=== PATIENT | male | born 1970 | race Caucasian/White ===

== ENCOUNTER 2018-04-20 20:52 | Emergency (ER) | payer OTHER ==
[~2018-04-20] VITALS: Ht 175.3 cm; Wt 110.5 kg
[~2018-04-20 20:52] MED LIST: BACTRIM DS 8001 TAB PO; DOXYCYCLINE 10100 MG PO; SERTRALINE
[2018-04-20 20:57] VITALS: BP 138/82
[2018-04-20] MEDS ORDERED: PREDNISONE20 MG PO (22:27)
[2018-04-20] MEDS ORDERED: FLEXERIL 1010 MG/TAB PO (22:28)
[2018-04-20 22:36] VITALS: PULSE 89; TEMP 98.3
== END 2018-04-20 22:38 | disposition home or self-care (01) ==
LOC: COL.ER 20:52
DX: M25.511 Pain in right shoulder (principal); F17.210 Nicotine dependence, cigarettes, uncomplicated; X58.XXXA Exposure to other specified factors, initial encounter; Y92.009 Unspecified place in unspecified non-institutional (private) residence as the place of occurrence of the external cause

== ENCOUNTER 2018-04-27 21:47 | Emergency (ER) | payer OTHER ==
[~2018-04-27] VITALS: Ht 175.3 cm; Wt 112.7 kg
[~2018-04-27 21:47] MED LIST changes: +FLEXERIL 1010 MG/TAB PO; +PREDNISONE20 MG PO
[2018-04-27 22:00] VITALS: BP 136/82; TEMP 98.4
[2018-04-27] MEDS ORDERED: FLEXERIL 1010 MG/TAB PO (23:55)
[2018-04-28 00:28] VITALS: PULSE 89
[2018-04-29] VITALS (327 sets, daily range): O2SAT 92–100
[2018-04-29] MEDS ORDERED: FLEXERIL 1010 MG/TAB PO (16:58)
[2018-04-30] VITALS (292 sets, daily range): O2SAT 61–100
[2018-04-30] MEDS ORDERED: PROTONIX 40MG T40 MG PO (14:46)
[2018-04-30] MEDS ORDERED: FLAGYL500 MG PO (14:47)
[2018-04-30] MEDS ORDERED: AMOXICILLIN 50500 MG PO (14:47)
[2018-04-30] MEDS ORDERED: FERROUS GL325 MG/TAB PO (14:57)
== END 2018-04-28 00:30 | disposition home or self-care (01) ==
LOC: COL.ER 21:47
DX: M62.838 Other muscle spasm (principal); F17.210 Nicotine dependence, cigarettes, uncomplicated
CPT/HCPCS: J1885

== ENCOUNTER → 2018-05-09 | Outpatient (CLI) | payer MEDICARE ==
[~2018-05-09] MED LIST changes: +AMOXICILLIN 50500 MG PO; +FERROUS GL325 MG/TAB PO; +FLAGYL500 MG PO; +PROTONIX 40MG T40 MG PO
[2018-05-09 12:18] LABS: MEAN CELL VOLUME 98 fl (80.0-100.0); MEAN CORPUSCULAR HGB CONC 32 g/dl (33.0-37.0); MEAN PLATELET VOLUME 9.2 fl (7.4-10.4); PLATELET COUNT 320 K/mm3 (130-400); RED BLOOD COUNT 3.16 M/mm3 (4.20-5.60); REDCELL DISTRIBUTION WIDTH-CV 15.9 % (11.5-14.5)
[2018-05-09 12:21] LABS: HEMATOCRIT 30.9 % (42.0-52.0); HEMOGLOBIN 9.9 g/dl (13.5-18.0); MEAN CORPUSCULAR HEMOGLOBIN 31 pg (27.0-31.0)
== END ==
LOC: COL.LAB 11:44
PROVIDERS: Family Medicine
DX: D64.9 Anemia, unspecified (principal)

== ENCOUNTER 2018-11-17 10:49 | Day surgery (SDC) | payer MEDICARE, OTHER ==
[~2018-11-17] VITALS: Ht 175.3 cm; Wt 115.0 kg
[2018-11-17 11:19] VITALS: BP 112/84; PULSE 100; TEMP 98.9
[2018-11-17] MEDS ORDERED: TYLENOL 8 HR PO (11:22)
[2018-11-17 11:45] VITALS: BP 111/73; PULSE 97; TEMP 97.8
[2018-11-17 12:00] VITALS: BP 103/70; PULSE 95
[2018-11-17 12:15] VITALS: BP 107/74; PULSE 95
== END 2018-11-17 12:31 ==
LOC: SDCO 10:49
DX: K26.3 Acute duodenal ulcer without hemorrhage or perforation (principal); B96.81 Helicobacter pylori [H. pylori] as the cause of diseases classified elsewhere; F17.210 Nicotine dependence, cigarettes, uncomplicated
CPT/HCPCS: J2250; J2405; J3010; J7030

== ENCOUNTER 2019-04-18 17:39 | Emergency (ER) | payer MEDICARE, OTHER ==
[~2019-04-18] VITALS: Ht 175.3 cm; Wt 109.1 kg
[~2019-04-18 17:39] MED LIST changes: +TYLENOL 8 HR PO
[2019-04-18 17:49] VITALS: BP 129/88; TEMP 97.9
[2019-04-18 19:35] VITALS: PULSE 75
== END 2019-04-18 19:35 | disposition home or self-care (01) ==
LOC: COL.ER 17:39
DX: S00.03XA Contusion of scalp, initial encounter (principal); S16.1XXA Strain of muscle, fascia and tendon at neck level, initial encounter; E11.9 Type 2 diabetes mellitus without complications; F17.210 Nicotine dependence, cigarettes, uncomplicated; Y92.009 Unspecified place in unspecified non-institutional (private) residence as the place of occurrence of the external cause; W01.198A Fall on same level from slipping, tripping and stumbling with subsequent striking against other object, initial encounter
CPT/HCPCS: J1885

== ENCOUNTER 2020-11-04 08:05 | Day surgery (SDC) | payer OTHER ==
[~2020-11-04] VITALS: Ht 175.3 cm; Wt 108.0 kg
[2020-11-04 08:46] VITALS: BP 121/79; PULSE 92; TEMP 98.3
[2020-11-04] MEDS ORDERED: GLUCOPHAGE1000 MG PO (08:56)
--- NOTE | 2020-11-04 08:58 | NUR ---
TO CINTHYA AT 0817- CALL LIGHT IN REACH
[2020-11-04] MEDS ORDERED: MOTRIN 600600 MG/TAB PO (10:36)
[2020-11-04] MEDS ORDERED: NORCO 325 MG-51 TAB PO (10:37)
[2020-11-04 12:40] VITALS: BP 111/68; PULSE 90; TEMP 97.2
--- NOTE | 2020-11-04 12:40 | NUR ---
TO RM 5 PER CART FROM PACU. ALERT ORIENTED X3 AND TALKING TO STAFF. COLOR PALE AND SKIN DIAPORETIC. C/O FEELING DIZZY, BUT DENIES NAUSEA. DENIES PAIN OR DISCOMFORT. ATE A FEW ICE CHIPS. LOWERED HEAD OF BED TO SEE IF IT WOULD HEL DIZZYNESS.
[2020-11-04 12:55] VITALS: BP 118/68; PULSE 86
--- NOTE | 2020-11-04 12:55 | NUR ---
C/O FEELING "HOT" REMOVED BLANKETS AND SDC'S. PATIENT STATED HE USUALLY SLEEPS WITH A FAN ON AT HOME.
[2020-11-04 13:10] VITALS: BP 120/73; PULSE 85
--- NOTE | 2020-11-04 13:10 | NUR ---
MORE AWAKE AND RECEIVED COFFEE WITH CREAM AND SUGAR. RECEIVED MYRA CRACKERS SITTING UP
--- NOTE | 2020-11-04 13:20 | NUR ---
SLIGHTLY PALE AND DIAPHORETIC BLOOD SUGAR 182 RECEIVED MUFFIN.
[2020-11-04 13:25] VITALS: BP 112/65; PULSE 93
[2020-11-04 13:40] VITALS: BP 112/65; PULSE 93
--- NOTE | 2020-11-04 13:40 | NUR ---
AMBULATED TO BATHROOM AND VOIDED. CALLED FOR RIDE.
--- NOTE | 2020-11-04 13:55 | NUR ---
RECEIVED DISCHARGE INSTRUCTIONS AND VERBALIZED UNDERSTANDING DISCONTINUED IV AND INT- CATHETER INTACT
--- NOTE | 2020-11-04 14:10 | NUR ---
DISCHARGED PER WC BY NURSING STAFF TO PRIVATE CAR IN CARE OF SON.
== END 2020-11-04 14:20 | disposition home or self-care (01) ==
LOC: SDCO 08:05
DX: K42.9 Umbilical hernia without obstruction or gangrene (principal); E11.9 Type 2 diabetes mellitus without complications; F32.9 Major depressive disorder, single episode, unspecified; F17.290 Nicotine dependence, other tobacco product, uncomplicated; F41.9 Anxiety disorder, unspecified; Z20.828 Contact with and (suspected) exposure to other viral communicable diseases; Z88.8 Allergy status to other drugs, medicaments and biological substances; Z79.84 Long term (current) use of oral hypoglycemic drugs; Z79.899 Other long term (current) drug therapy
CPT/HCPCS: C1781; J0690; J1100; J1885; J2405; J2704; J3010; J7030

== ENCOUNTER 2022-04-23 07:52 | Day surgery (SDC) | payer OTHER ==
[~2022-04-23] VITALS: Ht 175.3 cm; Wt 97.1 kg
[~2022-04-23 07:52] MED LIST changes: +GLUCOPHAGE1000 MG PO; +MOTRIN 600600 MG/TAB PO; +NORCO 325 MG-51 TAB PO
[2022-04-23 09:01] VITALS: BP 115/76; PULSE 76; TEMP 98.7
[2022-04-23 10:00] VITALS: BP 100/68; PULSE 88; TEMP 97.3
[2022-04-23 10:15] VITALS: BP 107/71; PULSE 91
== END 2022-04-23 10:30 | disposition home or self-care (01) ==
LOC: SDCO 07:52
DX: Z12.11 Encounter for screening for malignant neoplasm of colon (principal); D12.2 Benign neoplasm of ascending colon
CPT/HCPCS: J2704; J7120

== ENCOUNTER 2024-09-14 08:53 | Day surgery (SDC) | payer OTHER, MEDICARE ==
[~2024-09-14] VITALS: Ht 175.4 cm; Wt 107.0 kg
[~2024-09-14 08:53] MED LIST changes: +1/2 NS 1,000 ML IV SCH; +AMOXICILLIN 8751 TAB PO; +CIPRODEX OT; +NS 1,000 ML IV SCH; +NS Flush 10 ML SYRINGE PRN ICA
[2024-09-14] MEDS ORDERED: NS Flush 10 ML SYRINGE BID ICA SCH (09:00)
[2024-09-14 09:39] VITALS: BP 119/80; PULSE 86; TEMP 98.8
[2024-09-14 09:41] LABS: HEMATOCRIT 43.9 % (42.0-52.0); HEMOGLOBIN 15.6 g/dl (13.5-18.0); MEAN CELL VOLUME 91 fl (80.0-100.0); MEAN CORPUSCULAR HEMOGLOBIN 32 pg (27-31); MEAN CORPUSCULAR HGB CONC 36 g/dl (33.0-37.0); MEAN PLATELET VOLUME 10.4 fl (7.4-10.4); PLATELET COUNT 222 K/mm3 (130-400); RED BLOOD COUNT 4.83 M/mm3 (4.20-5.60); REDCELL DISTRIBUTION WIDTH-CV 11.7 % (11.5-14.5)
[2024-09-14 09:46] LABS: INR 1.2 (0.8-3.0); PROTHROMBIN TIME 12.7 SECONDS (9.7-12.8)
[2024-09-14] MEDS ORDERED: GLUCOTROL 5M5 MG/TAB PO (09:47)
[2024-09-14] MEDS ORDERED: JARDIANCE25 PO (09:47)
[2024-09-14] MEDS ORDERED: LIPITOR 40MG TA40 MG PO (09:47)
[2024-09-14] MEDS ORDERED: PRINIVIL10 MG PO (09:48)
[2024-09-14] MEDS ORDERED: ELIQUIS 2.5 PO (09:50)
[2024-09-14] MEDS ORDERED: VIAGRA 25MG TAB25 MG PO (09:50)
[2024-09-14 09:58] LABS: CALCIUM 8.5 mg/dL (8.4-10.2); CREATININE, serum 0.81 mg/dL (0.72-1.25)
[2024-09-14] MEDS ORDERED: Lidocaine PF 2% (20 MG/ML) 5 ML VIAL ONE (11:06)
[2024-09-14 12:00] VITALS: BP 97/65; PULSE 70
--- NOTE | 2024-09-14 12:12 | NUR ---
PATIENT TOLERATED PROCEDURE WELL, VSS. PATIENT PROVIDED CALL LIGHT, BED TO LOWEST POSITION, X3 BEDRAILS IN PLACE. TRANSFER OF CARE REPORT TO ANJELICA CORDERO
[2024-09-14 12:15] VITALS: BP 103/73; PULSE 70
[2024-09-14] MEDS ORDERED: ELIQUIS 5MG PO (12:17)
[2024-09-14] MEDS ORDERED: BETAPACE 80MG80 MG PO (12:19)
[2024-09-14 12:30] VITALS: BP 99/69; PULSE 73
[2024-09-14 12:45] VITALS: BP 105/72; PULSE 70
--- NOTE | 2024-09-14 13:15 | NUR ---
PT TOLERATED RECOVERY PERIOD WELL. VS REMAINED WITHIN NORMAL LIMITS. PT VERBALIZED UNDERSTANDING OF DISCHARGE INSTRUCTIONS. PT WAS ASSISTED TO MAIN LOBBY VIA WHEELCHAIR. IV DISCONTINUED. PT TOLERATED PO FLUIDS DURING RECOVERY. PT FREE FROM ACUTE CONCERNS AND COMPLAINTS UPON DISCHARGE.
== END 2024-09-14 13:16 | disposition home or self-care (01) ==
LOC: COL.CAR 08:53
PROVIDERS: Internal Medicine Cardiovascular Disease
DX: I48.0 Paroxysmal atrial fibrillation (principal); E66.9 Obesity, unspecified; E78.2 Mixed hyperlipidemia; I10 Essential (primary) hypertension; F17.210 Nicotine dependence, cigarettes, uncomplicated; Z68.34 Body mass index [BMI] 34.0-34.9, adult; Z79.899 Other long term (current) drug therapy
CPT/HCPCS: J0282; J2704; J7060